=== PATIENT | male | born 1955 | race African-American/Black ===

== ENCOUNTER 2017-02-07 15:08 | Inpatient (IN) | payer MEDICAID ==
[2017-02-07] MEDS ORDERED: TORADOL 30 MG VIAL IVP ONE (15:17)
[2017-02-07] MEDS ORDERED: CATAPRES TAB 0.1 MG PO PRN (15:21)
[2017-02-07] MEDS ORDERED: APRESOLINE INJ 20 MG VIAL IVP PRN (15:22)
[2017-02-07] MEDS ORDERED: COLCRYS TAB 0.6 MG PO ONE (16:00)
[2017-02-07 16:25] VITALS: BMI 39.0
[2017-02-07] MEDS ORDERED: PREVNAR 13 IM ONE (16:25)
[2017-02-07 16:31] LABS: BASOPHILS # (AUTO) 0.1 X10^3/uL (0.0-0.1); BASOPHILS % (AUTO) 0.5 % (0.2-1.0); EOSINOPHILS # (AUTO) 0.2 x10^3/uL (0.0-0.2); HEMATOCRIT 42.2 % (42.0-54.0); HEMOGLOBIN 13.8 g/dL (13.5-18.0); LYMPHOCYTES % (AUTO) 9.5 % (21.0-51.0); MEAN CORPUSCULAR HGB CONC 32.7 g/dL (33.0-35.0); MEAN CORPUSCULAR VOLUME 85.7 fL (80.0-100.0); MEAN PLATELET VOLUME 10.1 fL (7.4-11.0); MONOCYTES # (AUTO) 0.8 x10^3/uL (0.3-0.8); MONOCYTES % (AUTO) 7.5 % (0.0-13.0); NEUTROPHILS # (AUTO) 8.8 x10^3/uL (2.2-4.8); NEUTROPHILS % (AUTO) 80.5 % (42.0-75.0); PLATELET COUNT 165 X10^3/uL (150.0-450.0); RED BLOOD COUNT 4.93 X10^6/uL (4.7-6.0); WHITE BLOOD COUNT 10.9 X10^3/uL (3.6-10.0)
[2017-02-07 16:42] LABS: ALANINE AMINOTRANSFERASE 34 Units/L (12-78); ALBUMIN 3.3 g/dL (3.4-5.0); ALKALINE PHOSPHATASE 98 Units/L (46-116); ASPARTATE AMINO TRANSFERASE 32 Units/L (15-37); BLOOD UREA NITROGEN 19 mg/dL (7-18); CALCIUM 10.5 mg/dL (8.5-10.1); CARBON DIOXIDE 25.6 mmol/L (21-32); CHLORIDE 108 mmol/L (98-107); COR CA(FOR HYPOALB) 11.1 mg/dL (8.5-10.1); CREATININE 1.86 mg/dL (0.70-1.30); GLUCOSE 110 mg/dL (65-99); SODIUM 141 mmol/L (136-145); URIC ACID 7.7 mg/dL (3.5-7.2); eGFR BLACK RACES 48 (>60); eGFR NON BLACK RACES 40 (>60)
[2017-02-07 16:56] LABS: RHEUMATOID FACTOR NEGATIVE (NEGATIVE)
[2017-02-07 17:15] LABS: ERYTHROCYTE SEDIMENTATION RATE 3 MM/HOUR (0-15)
[2017-02-07] MEDS ORDERED: COLCRYS TAB 0.6 MG PO SCH ×2 (18:00→19:00)
[2017-02-07] MEDS: SOLU-Medrol 125 MG VIAL IVP SCH ×2 (18:11→23:33)
--- NOTE | 2017-02-07 18:42 | RAD ---
HISTORY: Hypertension Study: PA and lateral chest Comparison: None Findings: The trachea is midline. The cardiac silhouette is unremarkable. There is streaky density in the li ngula. The right lung is clear. There is no effusion. There is increased AP diameter of the thorax.. The bony thorax is unremarkable. IMPRESSION: 1. Scar versus subsegmental atelectasis in the lingula 2. Probable COPD Reported By:
[2017-02-07] MEDS: COLCRYS TAB 0.6 MG PO SCH ×2 (20:47→23:32)
[2017-02-08] MEDS: COLCRYS TAB 0.6 MG PO SCH ×3 (01:04→09:05)
[2017-02-08 07:05] LABS: BASOPHILS % (AUTO) 0.3 % (0.2-1.0); HEMATOCRIT 43.6 % (42.0-54.0); HEMOGLOBIN 14.1 g/dL (13.5-18.0); LYMPHOCYTES # (AUTO) 0.6 X10^3/uL (1.3-2.9); LYMPHOCYTES % (AUTO) 4.2 % (21.0-51.0); MEAN CORPUSCULAR HEMOGLOBIN 27.6 pg (27.0-34.0); MEAN CORPUSCULAR HGB CONC 32.3 g/dL (33.0-35.0); MEAN CORPUSCULAR VOLUME 85.6 fL (80.0-100.0); MEAN PLATELET VOLUME 10.3 fL (7.4-11.0); MONOCYTES # (AUTO) 0.1 x10^3/uL (0.3-0.8); NEUTROPHILS # (AUTO) 12.9 x10^3/uL (2.2-4.8); NEUTROPHILS % (AUTO) 94.5 % (42.0-75.0); PLATELET COUNT 158 X10^3/uL (150.0-450.0); RED BLOOD COUNT 5.09 X10^6/uL (4.7-6.0); RED CELL DISTRIBUTION WIDTH 16.4 % (11.6-16.5); WHITE BLOOD COUNT 13.6 X10^3/uL (3.6-10.0)
[2017-02-08 07:11] LABS: ALBUMIN 3.1 g/dL (3.4-5.0); COR CA(FOR HYPOALB) 11.7 mg/dL (8.5-10.1); CREATININE 1.78 mg/dL (0.70-1.30); TOTAL PROTEIN 7.3 g/dL (6.4-8.2)
[2017-02-08 07:18] LABS: PLATELET MORPHOLOGY COMMENT NORMAL (NORMAL)
[2017-02-08] MEDS ORDERED: NORCO 10/325 TAB PO PRN (08:27)
[2017-02-08] MEDS ORDERED: PATIENT'S HOME MEDICATION (Albuterol Sulfate [Proventil Hfa Inhaler 6.7 Gm] 2 PUFF) INH PRN (08:27)
[2017-02-08] MEDS ORDERED: FLEXERIL TAB 10 MG PO PRN (08:27)
[2017-02-08] MEDS ORDERED: POTASSIUM CHLORIDE 20 MEQ PO SCH (09:00)
[2017-02-08] MEDS ORDERED: PATIENT'S HOME MEDICATION (Hydralazine Hcl [Hydralazine Hcl] 1 TAB) PO SCH (09:00)
[2017-02-08] MEDS ORDERED: PROVENTIL NEB TX 0.083% 2.5MG/ 3ML NEB SCH (09:00)
[2017-02-08] MEDS ORDERED: PROVENTIL NEB TX 0.083% 2.5MG/ 3ML NEB PRN (09:00)
[2017-02-08] MEDS ORDERED: VITAMIN B-12 INJ IM SCH (09:00)
[2017-02-08] MEDS: LASIX PO SCH (09:04)
[2017-02-08] MEDS: ASPIRIN EC 81 MG PO SCH (09:05)
[2017-02-08] MEDS: PROCARDIA XL PO SCH (09:05)
[2017-02-08] MEDS: ZYLOPRIM PO SCH (09:05)
[2017-02-08] MEDS: LYRICA CAP 100 MG PO SCH ×2 (09:05→21:55)
[2017-02-08] MEDS: ZANTAC PO SCH ×2 (09:05→21:55)
[2017-02-08] MEDS: MICRO K EXTEN CAP 10 MEQ PO SCH (09:05)
[2017-02-08] MEDS: COREG TAB 6.25 MG PO SCH ×2 (09:05→21:55)
[2017-02-08] MEDS: APRESOLINE TAB 25 MG PO SCH ×2 (09:05→21:56)
[2017-02-08] MEDS: TEFLARO 600 MG in NS 50 ML IV + SPIKE MINIBAG* 50 ML IV SCH ×2 (10:00→21:54)
[2017-02-08] MEDS ORDERED: NS 500 ML IV 500 ML IV ONE (11:42)
--- NOTE | 2017-02-08 13:48 | DR.H&P ---
H&P - History & Physical for Day of: H&P Date: 02/07/17 - Chief Complaint Chief Complaint: high blood pressure, right arm pain and swelling - Allergies Allergies/Adverse Reactions: Allergies Allergy/AdvReac Type Severity Reaction Status Date / Time No Known Drug Allergy Allergy Verified 02/07/17 16:31 - History of Present Illness History of Present Illness: patient is a 61-year-old black male who was admitted from Dr. Donaldson's office after presenting for follow-up for right upper extremity pain and swelling. Patient thought he had a gout flare with swelling to his right radius which progressed up his arm to his elbow. Patient was found to be severely hypertensive in the office. Patient was admitted for hypertensive urgency with IV hydralazine and Catapres for hypertensive control. Plan to obtain admission labs, further evaluation of right upper extremity swelling and pain control. - Past Medical History Past Medical History: GERD, Gout, Hypertension - Social History Does patient currently use any type of tobacco product: No Have you used tobacco products in the last 12 months: No Type of Tobacco Use: None Does any household member use tobacco: No Alcohol Use: None - Medications Home Medications: Albuterol Sulfate [Proventil HFA Inhaler 6.7 gm] 2 puff INH Q4HHR PRN 02/07/17 [ History Confirmed 02/07/17] Allopurinol [ZYLOPRIM tab 100 mg *] 1 tab PO DAILY 02/07/17 [History Confirmed 02/07/17] Aspirin EC [ASPIRIN EC 81 MG *] 1 tab PO DAILY 02/07/17 [History Confirmed 02/07] Carvedilol [COREG TAB 6.25 MG *] 6.25 mg PO BID 02/07/17 [History Confirmed ] Clonidine HCl [CATAPRES 0.1 MG TAB *] 1 tab PO HS PRN 02/07/17 [History Confirmed 02/07/17] Colchicine 1 tab PO DAILY 02/07/17 [History Confirmed 02/07/17] Cyanocobalamin [VITAMIN B-12 INJ 1000 MCG VIAL *] 0.1 ml IM MONTHLY 02/07/17 [ History Confirmed 02/07/17] Cyclobenzaprine HCl [FLEXERIL 10 MG *] 1 tab PO TID PRN 02/07/17 [History Confirmed 02/07/17] Fluticasone Nasal [place] [FLONASE NASAL SPRAY *] 1 spray INH DAILY 02/07/17 [ History Confirmed 02/07/17] Furosemide [LASIX TAB 40 MG *] 1.5 tab PO DAILY 02/07/17 [History Confirmed ] Hydralazine HCl 1 tab PO BID 02/07/17 [History Confirmed 02/07/17] Hydrocodone-Acet 10/325 mg [NORCO 10 MG/325 MG *] 1 tab PO BID PRN 02/07/17 [ History Confirmed 02/07/17] Ibuprofen [MOTRIN TAB 800 MG *] 1 tab PO TID 02/07/17 [History Confirmed ] Latanoprost 0.005 % (Ophth) [XALATAN (OPHTH) DROPS 0.005 % *] 1 drop EACHEYE HS 02/07/17 [History Confirmed 02/07/17] Loratadine 10 mg 24-Hr Tab [LORATADINE 10 MG *] 1 tab PO DAILY 02/07/17 [ History Confirmed 02/07/17] Losartan Potassium 1 tab PO HS 02/07/17 [History Confirmed 02/07/17] Nifedipine [Nifedipine ER] 1 tab PO DAILY 02/07/17 [History Confirmed 02/07/17] Potassium Chloride [K-Tab] 20 meq PO DAILY 02/07/17 [History Confirmed 02/07/17] Pregabalin [LYRICA 100 MG *] 1 tab PO BID 02/07/17 [History Confirmed 02/07/17] Ranitidine HCl [ZANTAC TAB 150 MG *] 150 mg PO BID 02/07/17 [History Confirmed 02/07/17] Simvastatin [ZOCOR 40 MG *] 1 tab PO HS 02/07/17 [History Confirmed 02/07/17] Tadalafil [Cialis 5 mg] 1 tab PO .Q36 02/07/17 [History Confirmed 02/07/17] Tamsulosin HCl [FLOMAX (GENERIC) 0.4 MG *] 1 tab PO HS 02/07/17 [History Confirmed 02/07/17] - Review of Systems Constitutional: No Symptoms Reported Eyes: No Symptoms Reported ENT: No Symptoms Reported Respiratory: No Symptoms Reported Cardiovascular: Other (hypetension) Gastrointestinal: No Symptoms Reported Genitourinary: No Symptoms Reported Musculoskeletal: Arm Pain, Hand Pain Skin: Other (redness to right upper extremity) Neurological: No Symptoms Reported - Physical Exam Vital Signs: Temperature 98.3 F Pulse Rate [Left Brachial] 78 Respiratory Rate 18 Blood Pressure [Left Arm] 174/87 O2 Sat by Pulse Oximetry 95 Oriented: Normal Eyes: Normal Ear: Normal Nose: Normal Throat: Normal Respiratory: RLL Diminished, LLL Diminished Cardiovascular: Normal : Normal Auscultation: Bowel Sounds: Normal Palpation: Normal Tenderness: Normal Skin: Red (right hand, wrist and elbow), Tender, Hot Musculoskeletal: Right, Forearm, Wrist, Hand
--- NOTE | 2017-02-08 14:01 | PCM.PROG ---
Progress Note - Progress Note for Day of Date: 02/08/17 - Subjective Subjective: right upper extremity pain and redness. Patient is a 61-year-old black male who was admitted one day ago with hypertensive urgency and pain to right upper extremity. Patient's redness and swelling worsened from 1 day ago on admission. Patient started on IV Zosyn, ultrasound of the right upper extremity and x-ray of the right wrist and elbow ordered nursing staff instructed to elevate upper extremity and encouraged oral hydration for patient. - Past Medical Family Social History Past Med/Fam/Surg Hx: No changes since H&P Allergies: Allergies No Known Drug Allergy Allergy (Verified 02/07/17 16:31) - Review of Systems ROS: No change since H&P - Vital Signs and I&O's Vital Signs: Temperature 98.3 F Pulse Rate [Left Brachial] 78 Respiratory Rate 18 Blood Pressure [Left Arm] 174/87 O2 Sat by Pulse Oximetry 95 Intake and Output: Intake & Output 02/06/17 02/07/17 02/08/17 02/09/17 11:59 11:59 11:59 11:59 Intake Total 540 Balance 540 - Physical Exam Oriented: Normal Eyes: Normal Ear: Normal Nose: Normal Throat: Normal Respiratory: Normal Cardiovascular: Normal : Normal Auscultation: Bowel Sounds: Normal Tenderness: Normal Skin: Red (right hand, wrist and elbow), Tender, Hot Musculoskeletal: Right, Forearm, Wrist, Hand Speech Pattern: Clear - Laboratory and Diagnostics Result Diagrams: 02/08/17 06:27 02/08/17 06:27 Labs: Laboratory WBC 13.6 X10^3/uL (3.6-10.0) H 02/08/17 06:27 RBC 5.09 X10^6/uL (4.7-6.0) 02/08/17 06:27 Hgb 14.1 g/dL (13.5-18.0) 02/08/17 06:27 Hct 43.6 % (42.0-54.0) 02/08/17 06:27 MCV 85.6 fL (80.0-100.0) 02/08/17 06:27 MCH 27.6 pg (27.0-34.0) 02/08/17 06:27 MCHC 32.3 g/dL (33.0-35.0) L 02/08/17 06:27 RDW 16.4 % (11.6-16.5) 02/08/17 06:27 Plt Count 158 X10^3/uL (150.0-450.0) 02/08/17 06:27 Plt Count Comment Adequate (ADEQUATE) 02/08/17 06:27 MPV 10.3 fL (7.4-11.0) 02/08/17 06:27 Neut % 94.5 % (42.0-75.0) H 02/08/17 06:27 Lymph % 4.2 % (21.0-51.0) L 02/08/17 06:27 [place] % 1.0 % (0.0-13.0) 02/08/17 06:27 Eos % 0.0 % (0.9-2.9) L 02/08/17 06:27 Baso % 0.3 % (0.2-1.0) 02/08/17 06:27 Neut # 12.9 x10^3/uL (2.2-4.8) H 02/08/17 06:27 Lymph # 0.6 X10^3/uL (1.3-2.9) L 02/08/17 06:27 [place] # 0.1 x10^3/uL (0.3-0.8) L 02/08/17 06:27 Eos # 0.0 x10^3/uL (0.0-0.2) 02/08/17 06:27 Baso # 0.0 X10^3/uL (0.0-0.1) 02/08/17 06:27 Absolute Nucleated RBC 0.0 /100WBC 02/08/17 06:27 Total Counted 100 02/08/17 06:27 Neutrophils % (Manual) 92 % (39-76) H 02/08/17 06:27 Lymphocytes % (Manual) 4 % (13-43) L 02/08/17 06:27 Monocytes % (Manual) 2 % (4-9) L 02/08/17 06:27 Plt Morphology Comment Normal (NORMAL) 02/08/17 06:27 RBC Morphology Normal (NORMAL) 02/08/17 06:27 ESR 3 MM/HOUR (0-15) 02/07/17 16:19 Sodium 141 mmol/L (136-145) 02/08/17 06:27 Corrected Sodium 143 mmol/L (136-145) 02/08/17 06:27 Potassium 4.4 mmol/L (3.5-5.1) 02/08/17 06:27 Chloride 108 mmol/L (98-107) H 02/08/17 06:27 Carbon Dioxide 24.0 mmol/L (21-32) 02/08/17 06:27 BUN 24 mg/dL (7-18) H 02/08/17 06:27 Creatinine 1.78 mg/dL (0.70-1.30) H 02/08/17 06:27 Est GFR (MDRD) Af Amer 51 (>60) L 02/08/17 06:27 Est GFR (MDRD) Non-Af 42 (>60) L 02/08/17 06:27 Glucose 174 mg/dL (65-99) H 02/08/17 06:27 Uric Acid 7.7 mg/dL (3.5-7.2) H 02/07/17 16:19 Calcium 11.0 mg/dL (8.5-10.1) H 02/08/17 06:27 Corrected Calcium 11.7 mg/dL (8.5-10.1) H 02/08/17 06:27 Magnesium 2.0 mg/dL (1.7-2.9) 02/07/17 16:19 Total Bilirubin 0.70 mg/dL (0.2-1.0) 02/08/17 06:27 AST 29 Units/L (15-37) 02/08/17 06:27 ALT 33 Units/L (12-78) 02/08/17 06:27 Alkaline Phosphatase 96 Units/L (46-116) 02/08/17 06:27 C-Reactive Protein 57.80 mg/L (0-3.0) H 02/07/17 16:19 Total Protein 7.3 g/dL (6.4-8.2) 02/08/17 06:27 Albumin 3.1 g/dL (3.4-5.0) L 02/08/17 06:27 Globulin 4.2 g/dL (2.5-4.5) 02/08/17 06:27 Albumin/Globulin Ratio 0.7 Ratio (1.1-2.1) L 02/08/17 06:27 Rheumatoid Factor Negative (NEGATIVE) 02/07/17 16:19 - Plan (1) Hypertensive urgency, malignant Status: Acute Plan: RESUME HOME MEDS, IV HYDRALAZINE AND PO CATAPRES PRN. REPEAT AM LABS, MONITOR BP (2) Gout Status: Acute Qualifiers: Gout site: G Gout etiology: G Encounter type: E Laterality: L Chronicity: C Presence of tophus: P (3) Cellulitis of arm, right Status: Acute Plan: IV ATBX, US RUE, XRAY RIGHT WRIST AND RIGHT ELBOW (4) Swelling of joint, wrist, right Status: Acute
[2017-02-08] MEDS ORDERED: PATIENT'S HOME MEDICATION (Losartan Potassium [Losartan Potassium] 1 TAB) PO SCH (21:00)
[2017-02-08] MEDS ORDERED: FLOMAX PO SCH (21:00)
--- NOTE | 2017-02-08 21:21 | RAD ---
Right elbow three views Indication: Right elbow pain and swelling. Findings: There is enthesopathy at the triceps insertion with soft tissue stranding. No intra-articu lar effusion suggested with normal fat pads. Radio capitellar and trochlear joints appear intact. Impression: Soft tissue swelling about the elbow without fracture or intra-articular effusion. There is enthesopathy of the triceps. Correlate clinically for triceps/extensor mechanism injury. Celluli tis is not excluded. Reported By:
--- NOTE | 2017-02-08 21:23 | RAD ---
Right wrist three views Indication: Swelling. Findings: There is no cortical lucency or malalignment. There is diffuse soft tissue swelling about the hand particularly over the dorsum of the hand. Impression: Soft tissue swelling without acute fracture. Cellulitis not excluded. Reported By:
--- NOTE | 2017-02-08 21:24 | VAS ---
Ultrasound right upper extremity venous Doppler Indication: Swelling and pain in the right upper arm Technique: Dynamic grayscale, color and spectral Doppler imaging through the right upper extremity v eins with compression techniques and spectral analysis. Findings: The right basilic vein is patent compressible throughout its length. The right axillary ve in and right brachial veins are patent compressible with normal respiratory phasicity. The right jug ular vein is patent compressible with normal respiratory phasicity. The right subclavian vein appear s normal on color and spectral Doppler imaging. Impression: No right upper extremity deep vein thrombosis. Reported By:
[2017-02-08] MEDS: COZAAR PO SCH (21:55)
[2017-02-08] MEDS: ZOCOR TAB 40 MG PO SCH (21:56)
[2017-02-09 06:14] LABS: BASOPHILS # (AUTO) 0.1 X10^3/uL (0.0-0.1); BASOPHILS % (AUTO) 0.4 % (0.2-1.0); EOSINOPHILS # (AUTO) 0.2 x10^3/uL (0.0-0.2); EOSINOPHILS % (AUTO) 1.3 % (0.9-2.9); HEMOGLOBIN 13.6 g/dL (13.5-18.0); LYMPHOCYTES # (AUTO) 1.3 X10^3/uL (1.3-2.9); LYMPHOCYTES % (AUTO) 9.2 % (21.0-51.0); MEAN CORPUSCULAR HEMOGLOBIN 28.3 pg (27.0-34.0); MEAN CORPUSCULAR HGB CONC 33.2 g/dL (33.0-35.0); MEAN CORPUSCULAR VOLUME 85.3 fL (80.0-100.0); MEAN PLATELET VOLUME 10.7 fL (7.4-11.0); MONOCYTES % (AUTO) 7.2 % (0.0-13.0); NEUTROPHILS # (AUTO) 11.5 x10^3/uL (2.2-4.8); NEUTROPHILS % (AUTO) 81.9 % (42.0-75.0); PLATELET COUNT 172 X10^3/uL (150.0-450.0); RED BLOOD COUNT 4.81 X10^6/uL (4.7-6.0); RED CELL DISTRIBUTION WIDTH 16.4 % (11.6-16.5)
[2017-02-09 06:27] LABS: ALANINE AMINOTRANSFERASE 31 Units/L (12-78); ALBUMIN 2.8 g/dL (3.4-5.0); ALKALINE PHOSPHATASE 86 Units/L (46-116); ASPARTATE AMINO TRANSFERASE 23 Units/L (15-37); BLOOD UREA NITROGEN 22 mg/dL (7-18); CALCIUM 10.1 mg/dL (8.5-10.1); CHLORIDE 111 mmol/L (98-107); COR CA(FOR HYPOALB) 11.1 mg/dL (8.5-10.1); CREATININE 1.62 mg/dL (0.70-1.30); GLUCOSE 97 mg/dL (65-99); SODIUM 144 mmol/L (136-145); TOTAL PROTEIN 6.6 g/dL (6.4-8.2); eGFR BLACK RACES 56 (>60); eGFR NON BLACK RACES 47 (>60)
[2017-02-09] MEDS: ZANTAC PO SCH ×2 (09:54→20:56)
[2017-02-09] MEDS: APRESOLINE TAB 25 MG PO SCH ×2 (09:55→20:56)
[2017-02-09] MEDS: ZYLOPRIM PO SCH (09:56)
[2017-02-09] MEDS: COREG TAB 6.25 MG PO SCH ×2 (09:56→20:56)
[2017-02-09] MEDS: PROCARDIA XL PO SCH (09:57)
[2017-02-09] MEDS: LASIX PO SCH (09:57)
[2017-02-09] MEDS: MICRO K EXTEN CAP 10 MEQ PO SCH (09:59)
[2017-02-09] MEDS: ASPIRIN EC 81 MG PO SCH (09:59)
[2017-02-09] MEDS: LYRICA CAP 100 MG PO SCH ×2 (10:00→20:56)
[2017-02-09] MEDS: TEFLARO 600 MG in NS 50 ML IV + SPIKE MINIBAG* 50 ML IV SCH ×2 (10:00→20:55)
[2017-02-09] MEDS: COLCRYS TAB 0.6 MG PO SCH (10:00)
[2017-02-09] MEDS ORDERED: CATAPRES TAB 0.1 MG PO PRN (15:58)
[2017-02-09] MEDS ORDERED: TADALAFIL PO SCH (16:00)
--- NOTE | 2017-02-09 18:18 | PCM.PROG ---
Progress Note - Progress Note for Day of Date: 02/09/17 - Subjective Subjective: right upper extremity pain and redness, moderate improvement in edema. Patient is a 61-year-old black male who was admitted one day ago with hypertensive urgency and pain to right upper extremity. Patient's redness and swelling worsened from 1 day ago on admission. Patient started on IV Zosyn, ultrasound of the right upper extremity and x-ray of the right wrist and elbow with soft tissue swelling, cellulitis - no DVT. nursing staff instructed to elevate upper extremity and encouraged oral hydration for patient. - Past Medical Family Social History Past Med/Fam/Surg Hx: No changes since H&P Allergies: Allergies No Known Drug Allergy Allergy (Verified 02/07/17 16:31) - Review of Systems ROS: No change since H&P - Vital Signs and I&O's Vital Signs: Temperature 98.5 F Pulse Rate [Left Brachial] 58 Respiratory Rate 18 Blood Pressure [Left Arm] 135/74 O2 Sat by Pulse Oximetry 96 Intake and Output: Intake & Output 02/07/17 02/08/17 02/09/17 02/10/17 11:59 11:59 11:59 11:59 Intake Total 540 1030 530 Balance 540 1030 530 - Physical Exam Oriented: Normal Eyes: Normal Ear: Normal Nose: Normal Throat: Normal Respiratory: Normal Cardiovascular: Normal : Normal Auscultation: Bowel Sounds: Normal Tenderness: Normal Skin: Red (right hand, wrist and elbow), Tender, Hot Musculoskeletal: Right, Forearm, Wrist, Hand Speech Pattern: Clear - Laboratory and Diagnostics Result Diagrams: 02/09/17 03:50 02/09/17 03:50 Labs: Laboratory WBC 14.0 X10^3/uL (3.6-10.0) H 02/09/17 03:50 RBC 4.81 X10^6/uL (4.7-6.0) 02/09/17 03:50 Hgb 13.6 g/dL (13.5-18.0) 02/09/17 03:50 Hct 41.0 % (42.0-54.0) L 02/09/17 03:50 MCV 85.3 fL (80.0-100.0) 02/09/17 03:50 MCH 28.3 pg (27.0-34.0) 02/09/17 03:50 MCHC 33.2 g/dL (33.0-35.0) 02/09/17 03:50 RDW 16.4 % (11.6-16.5) 02/09/17 03:50 Plt Count 172 X10^3/uL (150.0-450.0) 02/09/17 03:50 Plt Count Comment Adequate (ADEQUATE) 02/08/17 06:27 MPV 10.7 fL (7.4-11.0) 02/09/17 03:50 Neut % 81.9 % (42.0-75.0) H 02/09/17 03:50 Lymph % 9.2 % (21.0-51.0) L 02/09/17 03:50 [place] % 7.2 % (0.0-13.0) 02/09/17 03:50 Eos % 1.3 % (0.9-2.9) 02/09/17 03:50 Baso % 0.4 % (0.2-1.0) 02/09/17 03:50 Neut # 11.5 x10^3/uL (2.2-4.8) H 02/09/17 03:50 Lymph # 1.3 X10^3/uL (1.3-2.9) 02/09/17 03:50 [place] # 1.0 x10^3/uL (0.3-0.8) H 02/09/17 03:50 Eos # 0.2 x10^3/uL (0.0-0.2) 02/09/17 03:50 Baso # 0.1 X10^3/uL (0.0-0.1) 02/09/17 03:50 Absolute Nucleated RBC 0.0 /100WBC 02/09/17 03:50 Total Counted 100 02/08/17 06:27 Neutrophils % (Manual) 92 % (39-76) H 02/08/17 06:27 Lymphocytes % (Manual) 4 % (13-43) L 02/08/17 06:27 Monocytes % (Manual) 2 % (4-9) L 02/08/17 06:27 Plt Morphology Comment Normal (NORMAL) 02/08/17 06:27 RBC Morphology Normal (NORMAL) 02/08/17 06:27 ESR 3 MM/HOUR (0-15) 02/07/17 16:19 Sodium 144 mmol/L (136-145) 02/09/17 03:50 Corrected Sodium TNP 02/09/17 03:50 Potassium 3.6 mmol/L (3.5-5.1) 02/09/17 03:50 Chloride 111 mmol/L (98-107) H 02/09/17 03:50 Carbon Dioxide 24.0 mmol/L (21-32) 02/09/17 03:50 BUN 22 mg/dL (7-18) H 02/09/17 03:50 Creatinine 1.62 mg/dL (0.70-1.30) H 02/09/17 03:50 Est GFR (MDRD) Af Amer 56 (>60) L 02/09/17 03:50 Est GFR (MDRD) Non-Af 47 (>60) L 02/09/17 03:50 Glucose 97 mg/dL (65-99) 02/09/17 03:50 Uric Acid 7.7 mg/dL (3.5-7.2) H 02/07/17 16:19 Calcium 10.1 mg/dL (8.5-10.1) 02/09/17 03:50 Corrected Calcium 11.1 mg/dL (8.5-10.1) H 02/09/17 03:50 Magnesium 2.0 mg/dL (1.7-2.9) 02/07/17 16:19 Total Bilirubin 0.40 mg/dL (0.2-1.0) 02/09/17 03:50 AST 23 Units/L (15-37) 02/09/17 03:50 ALT 31 Units/L (12-78) 02/09/17 03:50 Alkaline Phosphatase 86 Units/L (46-116) 02/09/17 03:50 C-Reactive Protein 31.50 mg/L (0-3.0) H 02/09/17 03:50 Total Protein 6.6 g/dL (6.4-8.2) 02/09/17 03:50 Albumin 2.8 g/dL (3.4-5.0) L 02/09/17 03:50 Globulin 3.8 g/dL (2.5-4.5) 02/09/17 03:50 Albumin/Globulin Ratio 0.7 Ratio (1.1-2.1) L 02/09/17 03:50 Rheumatoid Factor Negative (NEGATIVE) 02/07/17 16:19 - Plan (1) Hypertensive urgency, malignant Status: Acute Plan: RESUME HOME MEDS, IV HYDRALAZINE AND PO CATAPRES PRN. REPEAT AM LABS, MONITOR BP (2) Gout Status: Acute Qualifiers: Gout site: G Gout etiology: G Encounter type: E Laterality: L Chronicity: C Presence of tophus: P (3) Cellulitis of arm, right Status: Acute Plan: continue IV antibiotics, continue elevation, pain control (4) Swelling of joint, wrist, right Status: Acute
[2017-02-09] MEDS: COZAAR PO SCH (20:57)
[2017-02-09] MEDS: ZOCOR TAB 40 MG PO SCH (20:57)
[2017-02-09] MEDS ORDERED: FLOMAX PO SCH (21:00)
[2017-02-10 05:38] LABS: ALANINE AMINOTRANSFERASE 28 Units/L (12-78); ALBUMIN 2.7 g/dL (3.4-5.0); ALKALINE PHOSPHATASE 81 Units/L (46-116); ASPARTATE AMINO TRANSFERASE 19 Units/L (15-37); BLOOD UREA NITROGEN 21 mg/dL (7-18); CALCIUM 10.1 mg/dL (8.5-10.1); CARBON DIOXIDE 24.9 mmol/L (21-32); CHLORIDE 111 mmol/L (98-107); COR CA(FOR HYPOALB) 11.1 mg/dL (8.5-10.1); CREATININE 1.75 mg/dL (0.70-1.30); GLUCOSE 84 mg/dL (65-99); SODIUM 143 mmol/L (136-145); TOTAL PROTEIN 6.3 g/dL (6.4-8.2); eGFR BLACK RACES 52 (>60); eGFR NON BLACK RACES 43 (>60)
[2017-02-10 05:39] LABS: BASOPHILS # (AUTO) 0.1 X10^3/uL (0.0-0.1); BASOPHILS % (AUTO) 0.7 % (0.2-1.0); EOSINOPHILS # (AUTO) 0.6 x10^3/uL (0.0-0.2); EOSINOPHILS % (AUTO) 7.1 % (0.9-2.9); HEMATOCRIT 43.1 % (42.0-54.0); LYMPHOCYTES # (AUTO) 1.6 X10^3/uL (1.3-2.9); LYMPHOCYTES % (AUTO) 21.2 % (21.0-51.0); MEAN CORPUSCULAR HEMOGLOBIN 27.8 pg (27.0-34.0); MEAN CORPUSCULAR HGB CONC 32.4 g/dL (33.0-35.0); MEAN PLATELET VOLUME 10.4 fL (7.4-11.0); MONOCYTES # (AUTO) 0.7 x10^3/uL (0.3-0.8); MONOCYTES % (AUTO) 8.7 % (0.0-13.0); NEUTROPHILS # (AUTO) 4.8 x10^3/uL (2.2-4.8); NEUTROPHILS % (AUTO) 62.3 % (42.0-75.0); PLATELET COUNT 174 X10^3/uL (150.0-450.0); RED BLOOD COUNT 5.01 X10^6/uL (4.7-6.0); RED CELL DISTRIBUTION WIDTH 16.6 % (11.6-16.5); WHITE BLOOD COUNT 7.7 X10^3/uL (3.6-10.0)
[2017-02-10 08:35] VITALS: BP 134/76
[2017-02-10] MEDS ORDERED: FLONASE NASAL SPRAY ENOSTRIL SCH (09:00)
[2017-02-10] MEDS: PROCARDIA XL PO SCH (09:07)
[2017-02-10] MEDS: ASPIRIN EC 81 MG PO SCH (09:07)
[2017-02-10] MEDS: COLCRYS TAB 0.6 MG PO SCH (09:07)
[2017-02-10] MEDS: MICRO K EXTEN CAP 10 MEQ PO SCH (09:07)
[2017-02-10] MEDS: APRESOLINE TAB 25 MG PO SCH (09:08)
[2017-02-10] MEDS: LASIX PO SCH (09:08)
[2017-02-10] MEDS: ZANTAC PO SCH (09:08)
[2017-02-10] MEDS: ZYLOPRIM PO SCH (09:08)
[2017-02-10] MEDS: LYRICA CAP 100 MG PO SCH (09:08)
[2017-02-10] MEDS: TEFLARO 600 MG in NS 50 ML IV + SPIKE MINIBAG* 50 ML IV SCH (09:14)
[2017-02-10] MEDS: COREG TAB 6.25 MG PO SCH (09:15)
[2017-02-10] MEDS ORDERED: PREVNAR 13 IM ONE (11:31)
--- NOTE | 2017-02-10 14:02 | PCM.DCPLAN ---
Discharge Summary - Admission Date Date of Admission: 02/07/17 - Discharge Date Discharge Date: 02/10/17 - Admission Diagnoses (1) Hypertensive urgency, malignant Status: Acute (2) Gout Status: Acute (3) Cellulitis of arm, right Status: Acute (4) Swelling of joint, wrist, right Status: Acute - Discharge Diagnoses Discharge Diagnosis: SAME ADMISSION - Discharge Medications Discharge Medications: Albuterol Sulfate [Proventil HFA Inhaler 6.7 gm] 2 puff INH Q4HHR PRN 02/07/17 [ History] Allopurinol [ZYLOPRIM tab 100 mg *] 1 tab PO DAILY 02/07/17 [History] Aspirin EC [ASPIRIN EC 81 MG *] 1 tab PO DAILY 02/07/17 [History] Carvedilol [COREG TAB 6.25 MG *] 6.25 mg PO BID 02/07/17 [History] Clonidine HCl [CATAPRES 0.1 MG TAB *] 1 tab PO HS PRN 02/07/17 [History] Colchicine 1 tab PO DAILY 02/07/17 [History] Cyanocobalamin [VITAMIN B-12 INJ 1000 MCG VIAL *] 0.1 ml IM MONTHLY 02/07/17 [ History] Cyclobenzaprine HCl [FLEXERIL 10 MG *] 1 tab PO TID PRN 02/07/17 [History] Fluticasone Nasal [place] [FLONASE NASAL SPRAY *] 1 spray INH DAILY 02/07/17 [ History] Furosemide [LASIX TAB 40 MG *] 1.5 tab PO DAILY 02/07/17 [History] Hydralazine HCl 1 tab PO BID 02/07/17 [History] Hydrocodone-Acet 10/325 mg [NORCO 10 MG/325 MG *] 1 tab PO BID PRN 02/07/17 [ History] Ibuprofen [MOTRIN TAB 800 MG *] 1 tab PO TID 02/07/17 [History] Latanoprost 0.005 % (Ophth) [XALATAN (OPHTH) DROPS 0.005 % *] 1 drop EACHEYE HS 02/07/17 [History] Loratadine 10 mg 24-Hr Tab [LORATADINE 10 MG *] 1 tab PO DAILY 02/07/17 [History ] Losartan Potassium 1 tab PO HS 02/07/17 [History] Nifedipine [Nifedipine ER] 1 tab PO DAILY 02/07/17 [History] Potassium Chloride [K-Tab] 20 meq PO DAILY 02/07/17 [History] Pregabalin [LYRICA 100 MG *] 1 tab PO BID 02/07/17 [History] Ranitidine HCl [ZANTAC TAB 150 MG *] 150 mg PO BID 02/07/17 [History] Simvastatin [ZOCOR 40 MG *] 1 tab PO HS 02/07/17 [History] Tadalafil [Cialis 5 mg] 1 tab PO .Q36 02/07/17 [History] Tamsulosin HCl [FLOMAX (GENERIC) 0.4 MG *] 1 tab PO HS 02/07/17 [History] Levofloxacin [LEVAQUIN TAB 500 MG *] 500 mg PO Q24H #10 tab 02/10/17 [Rx] Sulfamethoxazole-Trimethoprim [BACTRIM DS TAB 800/160 MG *] 1 tab PO BID #20 tab 02/10/17 [Rx] - Hospital Course Vital Signs: Temperature 98.2 F Pulse Rate [Right Brachial] 48 Pulse Rate [Left Brachial] 86 Pulse Rate 53 Respiratory Rate 18 Blood Pressure [Right Arm] 134/76 Blood Pressure [Left Arm] 123/61 O2 Sat by Pulse Oximetry 94 Latest Lab Results: Laboratory Last Values WBC 7.7 X10^3/uL (3.6-10.0) 02/10/17 04:00 RBC 5.01 X10^6/uL (4.7-6.0) 02/10/17 04:00 Hgb 14.0 g/dL (13.5-18.0) 02/10/17 04:00 Hct 43.1 % (42.0-54.0) 02/10/17 04:00 MCV 86.0 fL (80.0-100.0) 02/10/17 04:00 MCH 27.8 pg (27.0-34.0) 02/10/17 04:00 MCHC 32.4 g/dL (33.0-35.0) L 02/10/17 04:00 RDW 16.6 % (11.6-16.5) H 02/10/17 04:00 Plt Count 174 X10^3/uL (150.0-450.0) 02/10/17 04:00 Plt Count Comment Adequate (ADEQUATE) 02/08/17 06:27 MPV 10.4 fL (7.4-11.0) 02/10/17 04:00 Neut % 62.3 % (42.0-75.0) 02/10/17 04:00 Lymph % 21.2 % (21.0-51.0) 02/10/17 04:00 [place] % 8.7 % (0.0-13.0) 02/10/17 04:00 Eos % 7.1 % (0.9-2.9) H 02/10/17 04:00 Baso % 0.7 % (0.2-1.0) 02/10/17 04:00 Neut # 4.8 x10^3/uL (2.2-4.8) 02/10/17 04:00 Lymph # 1.6 X10^3/uL (1.3-2.9) 02/10/17 04:00 [place] # 0.7 x10^3/uL (0.3-0.8) 02/10/17 04:00 Eos # 0.6 x10^3/uL (0.0-0.2) H 02/10/17 04:00 Baso # 0.1 X10^3/uL (0.0-0.1) 02/10/17 04:00 Absolute Nucleated RBC 0.1 /100WBC 02/10/17 04:00 Total Counted 100 02/08/17 06:27 Neutrophils % (Manual) 92 % (39-76) H 02/08/17 06:27 Lymphocytes % (Manual) 4 % (13-43) L 02/08/17 06:27 Monocytes % (Manual) 2 % (4-9) L 02/08/17 06:27 Plt Morphology Comment Normal (NORMAL) 02/08/17 06:27 RBC Morphology Normal (NORMAL) 02/08/17 06:27 ESR 3 MM/HOUR (0-15) 02/07/17 16:19 Sodium 143 mmol/L (136-145) 02/10/17 04:00 Corrected Sodium TNP 02/10/17 04:00 Potassium 3.8 mmol/L (3.5-5.1) 02/10/17 04:00 Chloride 111 mmol/L (98-107) H 02/10/17 04:00 Carbon Dioxide 24.9 mmol/L (21-32) 02/10/17 04:00 BUN 21 mg/dL (7-18) H 02/10/17 04:00 Creatinine 1.75 mg/dL (0.70-1.30) H 02/10/17 04:00 Est GFR (MDRD) Af Amer 52 (>60) L 02/10/17 04:00 Est GFR (MDRD) Non-Af 43 (>60) L 02/10/17 04:00 Glucose 84 mg/dL (65-99) 02/10/17 04:00 Uric Acid 7.7 mg/dL (3.5-7.2) H 02/07/17 16:19 Calcium 10.1 mg/dL (8.5-10.1) 02/10/17 04:00 Corrected Calcium 11.1 mg/dL (8.5-10.1) H 02/10/17 04:00 Magnesium 2.0 mg/dL (1.7-2.9) 02/07/17 16:19 Total Bilirubin 0.30 mg/dL (0.2-1.0) 02/10/17 04:00 AST 19 Units/L (15-37) 02/10/17 04:00 ALT 28 Units/L (12-78) 02/10/17 04:00 Alkaline Phosphatase 81 Units/L (46-116) 02/10/17 04:00 C-Reactive Protein 12.30 mg/L (0-3.0) H 02/10/17 04:00 Total Protein 6.3 g/dL (6.4-8.2) L 02/10/17 04:00 Albumin 2.7 g/dL (3.4-5.0) L 02/10/17 04:00 Globulin 3.6 g/dL (2.5-4.5) 02/10/17 04:00 Albumin/Globulin Ratio 0.8 Ratio (1.1-2.1) L 02/10/17 04:00 Rheumatoid Factor Negative (NEGATIVE) 02/07/17 16:19 Hospital Course: PATIENT IS A 61-YEAR-OLD BLACK MALE WHO WAS A DIRECT ADMIT FROM dR. Velázquez'S OFFICE WITH HYPERTENSIVE URGENCY AND RIGHT UPPER EXTREMITY EDEMA AND PAIN. oN ADMISSION PATIENT HAD WHEN NECESSARY BLOOD PRESSURE ORDERS FOR HYDRALAZINE AND CLONIDINE. pATIENT'S HOME BLOOD PRESSURE MEDICATIONS WERE RESTARTED. pATIENT HAD LABS ON ADMISSION INCLUDING ARTHRITIS PANEL. pATIENT'S URIC ACID WAS SLIGHTLY ELEVATED. pATIENT'S ra FACTOR WAS NEGATIVE. pATIENT'S crp WAS ELEVATED ON ADMISSION. pATIENT WAS STARTED ON iv ANTIBIOTICS WELL PAIN CONTROL. pATIENT HAD A VENOUS dOPPLER OF HIS RIGHT UPPER EXTREMITY WHICH WAS NEGATIVE FOR dvt. pATIENT HAD X-RAY OF THE RIGHT ELBOW AND WRIST WHICH SHOWED SOFT TISSUE SWELLING AND DEGENERATIVE CHANGES. pATIENT ELEVATED UPPER EXTREMITY ABOVE CHEST LEVEL AND CONTINUED WITH iv ANTIBIOTICS. pATIENT ALSO HAD 3 DOSES OF iv STEROIDS ON ADMISSION. tODAY PATIENT'S SWELLING IS SIGNIFICANTLY IMPROVED. pATIENT HAS NO REDNESS TO HAND OR FOREARM. pATIENT DOES HAVE MILD TIGHTNESS AND SWELLING TO THE HAND CONTINUED HOWEVER PATIENT FEELS MUCH BETTER DENIES ANY PAIN IN 2 DAYS. pATIENT DISCHARGED HOME ON BY MOUTH bACTRIM AND CONTINUE HOME BLOOD PRESSURE MEDS. pATIENT INSTRUCTED TO ELEVATE RIGHT UPPER EXTREMITY MUCH POSSIBLE AND TO FOLLOW WEIGHT UP WITH dR. Velázquez IN 1 WEEK. pATIENT INSTRUCTED TO KEEP A BLOOD PRESSURE DIARY AND BRING IN AT HIS NEXT OFFICE VISIT. pATIENT VERBALIZED UNDERSTANDING. pATIENT WAS DISCHARGED HOME BY PRIVATE VEHICLE WITH CONDITION IMPROVED AND STABLE ON DISCHARGE. - Discharge Plan Disposition: 01 HOME, SELF-CARE Condition: Stable Prescriptions: Levofloxacin [LEVAQUIN TAB 500 MG *] 500 mg PO Q24H #10 tab Sulfamethoxazole-Trimethoprim [BACTRIM DS TAB 800/160 MG *] 1 tab PO BID #20 tab - Follow ups/Referrals Follow ups/Referrals: YOAN VELÁZQUEZ [Primary Care Provider] - 02/17/17 10:45 am - Instructions Instructions: Low-Purine Diet, Gout, Stuy-em-Utcy, Uric Acid Test, Cellulitis, [id number]-zu-Afsl, Hypertension, [id number], Levofloxacin tablets, Sulfamethoxazole ; Trimethoprim, SMX-TMP tablets Forms: Patient Portal
== END 2017-02-10 12:50 | disposition home or self-care (01) | DRG 305 ==
LOC: MED/SURG 15:08 → OBSVTOIN 02-08 09:00
PROVIDERS: ADMIT Internal Medicine; ATTEND Internal Medicine
PROC: 3E0234Z Introduction of Serum, Toxoid and Vaccine into Muscle, Percutaneous Approach (ICD-10-PCS; principal; 2017-02-10)
DX: I16.0 Hypertensive urgency (principal); M79.601 Pain in right arm; M79.89 Other specified soft tissue disorders; K21.9 Gastro-esophageal reflux disease without esophagitis; L03.113 Cellulitis of right upper limb; M10.9 Gout, unspecified; Z23 Encounter for immunization
CPT/HCPCS: 36415; 71020; 73070; 73100; 80053; 83735; 84550; 85025; 85652; 86140; 86430; 93005; 93010; 93971; 94640; 99238; A4222; 90670; G0378; J0712; J1885; J2930; J7613